=== PATIENT | female | born 1990 | race Caucasian/White ===

== ENCOUNTER 2020-01-08 12:10 | Inpatient (IN) | payer OTHER ==
[2020-01-08] MEDS ORDERED: Lactated Ringers 1000 ML Bag* 1,000 ML IV ONE ×2 (13:17→16:48)
[2020-01-08] MEDS ORDERED: Buffered Lidocaine 1% SYRIN* 1 ML/SYRINGE INTRADERM ONE (13:17)
--- NOTE | 2020-01-08 13:31 | HP ---
General Information - Reason for Visit Contractions and bloody show - General Information Maternal Age: 29 Grav: 1 Para: 0 SAB: 0 IEA: 0 Estimated Due Date: 01/13/20 Determined By: Early Ultrasound Maternal Blood Type and Rh: O Negative - Results this Serology/RPR Result: Non-Reactive Rubella Result: Immune HBsAg Result: Negative HIV Result: Negative GBS Culture Result: Negative Past Medical History Delivery History: See Records Delivery History Comment: No previous pregnancies Pertinent Past Medical History: See Records Past Medical History Comment: Anxiety--on Lexapro Hypercholesteremia Pertinent Past Surgical History: See Records Past Surgical History Comment: [place] teeth 2019 Pertinent Family History: See Records Family History Comment: Stroke Cancer - Antepartal Records Antepartal Records: Reviewed, Complicated by: - Rh negative Review of Systems Constitutional: Uncomfortable CV Complaint: No Respiratory: Shortness of Breath: No Gastrointestinal: No Nausea/Vomiting, Soft Stool Genitourinary: No Dysuria, No Leaking Fluid, Spotting Musculoskeletal: Contractions Neurological: No Headache, No Visual Changes Movement: Normal Exam Allergies/Adverse Reactions: Allergies No Known Allergies Allergy (Verified 01/08/20 12:35) BP 93/62 T 98 HR 110 RR 20 O2 99 - Measurements Height: 5 ft 3 in Weight: 174 lb Weight in lbs: [id number] Body Mass Index (BMI): 30.8 Pre- Weight: 135 lb Weight Gained This : 39 lbs and 0 ozs - Exam Breast: Breast Exam Deferred CVA: No CVA Tenderness Extremities: No Edema Heart: Normal Rhythm/Heart Sounds HEENT: No Significant Findings Lungs: Clear Bilaterally Rectal: Rectal Exam Deferred Reflexes: DTR 2+, - - no clonus Thyroid: - - WNL @ entry to care - Abdominal Exam Abdomen Exam: Non-Tender, Fundal Height Consistent with Dates - Ultrasound/Biophysical Profile Ultrasound Status: Not Done Targeted Exam Findings Estimated Weight: 8lb Cervical Exam: 6cm Effacement: 100% Station: +1 Presenting Part: Vertex Membrane Status: Intact Bleeding/Discharge: None EFM Findings - External Monitor Findings Baseline Heart Rate: 135 External Monitor Findings: Accelerations Present, No Pattern of Variable or Late Decelerations, Variability Moderate Contractions: Regular, Moderate, Strong, 45-90 Seconds Contraction Frequency: q 2-4 min Assessment/Plan - Assessment IUP @ 39+2 weeks gestation in active labor. Intact membranes. No evidence acidemia - Plan Plan: Admit - Anticipate Vaginal Delivery Plan Comment: Admit to L&D. Coping well for now, planning likely epidural. Will initiate IV and draw labs. May get in tub. - Date/Time of Admission Date of Admission: 01/08/20 Time of Admission: 13:14
[2020-01-08] MEDS ORDERED: Lactated Ringers 1000 ML Bag* 1,000 ML IV SCH (14:00)
[2020-01-08 15:03] LABS: ABS Lymphocytes 1.5 10^3/ul (1.0-4.8); ABS Monocytes 0.7 10^3/ul (0-0.8); ABS Neutrophils 11.7 10^3/ul (1.5-7.7); Hematocrit 36 % (35-47); Hemoglobin 12.7 g/dL (12.0-16.0); Lymphocyte % 10.8 %; Mean Corpuscular HGB Conc 35 g/dL (31-36); Mean Corpuscular Hemoglobin 31 pg (27-31); Mean Corpuscular Volume 89 fL (80-97); Mean Platelet Volume 9.6 fL (7.4-10.4); Platelet Count 194 10^3/uL (150-450); Red Blood Count 4.06 10^6 /uL (3.70-4.87); Red Cell Distribution Width 13 % (10-15)
[2020-01-08] MEDS ORDERED: OBEPIDURAL* 250 ML EPIDURAL ONE (15:34)
--- NOTE | 2020-01-08 15:44 | PN ---
Progress Note - Progress Note Date of Service: 01/08/20 Note: S: Feels that contractions are now stronger, wants VE and to consider epidural. O: VE 7cm/100/+1, bulging bag. UCs q 2-3 min FHT 140 via doppler BP 89/44, afebrile A/P: IUP in active labor, membrane intact. No evidence acidemia. Patient desires epidural; reviewed procedure, questions answered and anesthesia paged to unit.
[2020-01-08] MEDS ORDERED: Sodium Citrate/Citric Acid* 15 ML UDC PO PRN (16:48)
[2020-01-08] MEDS ORDERED: Famotidine TAB* 20 MG PO PRN (16:48)
[2020-01-08] MEDS ORDERED: EPHEDrine (Pressors)* 50 MG/ML VIAL IV PUSH PRN (16:48)
[2020-01-08] MEDS ORDERED: Lactated Ringers 1000 ML Bag* 500 ML IV PRN (16:48)
[2020-01-08] MEDS ORDERED: Phenylephrine 40 MCG/ML SYRINGE IV PUSH PRN (16:48)
[2020-01-08] MEDS ORDERED: OBEPIDURAL* 250 ML EPIDURAL SCH (17:00)
[2020-01-08] MEDS ORDERED: Acetaminophen TAB* 325 MG PO ONE (20:24)
--- NOTE | 2020-01-08 20:30 | PN ---
Progress Note - Progress Note Date of Service: 01/08/20 - Time of note: 1944 Note: S: Patient comfortable O: VE 10/100/0 FHT 125-130, single long decel into 90s/100s approx 7 minutes with return to baseline, resolving with position changes. Mod radha, accels after return. UCs Q 2-4 min VSS Membrane intact, bulging bag A: IUP in transition Doubt acidemia P: Continue positioning changes as needed. Will plan to labor down until urge to push. Consider amniotomy. Anticipate SVB
[2020-01-08 20:51] LABS: Urine Benzodiazepine Screen None Detected (None Detect); Urine Opiates Screen None Detected (None Detect)
[2020-01-08] MEDS ORDERED: Calcium Carbonate CHEW TAB* 500 MG (TUMS) PO ONE (21:37)
[2020-01-08] MEDS ORDERED: Oxytocin in LR* 20 UNITS/1,000 ML BAG IVPB ONE (22:06)
[2020-01-08] MEDS: Lactated Ringers 1000 ML Bag* 1,000 ML IV SCH (22:18)
[2020-01-09] MEDS: Lactated Ringers 1000 ML Bag* 1,000 ML IV SCH (01:31)
[2020-01-09] MEDS ORDERED: Glycerin ADULT SUPP PR PRN (02:04)
--- NOTE | 2020-01-09 02:17 | PN ---
Progress Note - Progress Note Date of Service: 01/09/20 Note: Pushing from approx 2200 until after 0100 with multiple breaks due to decelerations with pushing. Position changes and oxygen lead to return to baseline. However concern for patient's and reserves remained and Dr Bradford consulted re vaccuum delivery.
[2020-01-09] MEDS ORDERED: Oxytocin in LR* 20 UNITS/1,000 ML BAG IVPB SCH (03:00)
[2020-01-09] MEDS: Ibuprofen TAB* 600 MG PO PRN ×4 (03:38→19:57)
[2020-01-09] MEDS: Witch Hazel PAD* JAR TOPICAL PRN (03:39)
[2020-01-09] MEDS: Dibucaine 1% 28.35 GM TUBE PR PRN ×3 (03:39→18:32)
--- NOTE | 2020-01-09 05:47 | PROCNOTE ---
[facility] OB: Delivery Note - Delivery A Date of : 01/09/20 Time of : 01:47 [place] Sex: Male Weight at : 8 lb 1 oz Score 1 Minute: 6 Score 5 Minutes: 9 Gestational Age in Weeks and Days at Delivery: 39 Weeks and 3 Days Delivery Method: Low Vacuum Extraction, Vaginal Labor: Spontaneous Did Patient attempt ?: N/A, No Previous Amniotic Fluid: Clear Estimated Blood Loss: 350 Anesthesia/Analgesia: CEI for Labor Delivered By: Oliver Bradford - Nursery Level of Nursery: Regular/Bedside - Perineum Perineal Injury: Perineal Laceration, 2nd Degree Perineal Repair: By Delivering Practioner - Events Delivery Events of Note: Protracted/Long Labor, Pitocin Only After Delivery, Difficult Delivery, Supplemental O2 to Mother, Pushed > 3 Hours - Additional Delivery Notes Additional Delivery Notes: Pt admitted in labor and cared for by the office machine servicer, Ms. Bloom. After she had been pushing for 2-3 hrs, I was consulted to assess for assistance. Pt had been pushing with good effort, however most times if she tried to push in a lithotomy position, the FHR would experience a significant deceleration. When I was able to come in, pt had been resting for about 20-30 min. With one contraction, she brought the baby down to +2 station. Head in OA position. We discussed vacuum assistance including potential risks of failure, shoulder dystocia, severe perineal laceration, and scalp bleeding. Pt desired to proceed. Baez catheter removed. Kiwi vacuum placed on head. With next contraction, pt pushed with excellent effort while traction was applied. Head descended well with each push, and head delivered in a controlled fashion during that contraction. Vacuum removed. Shoulders delivered without difficulty, and body followed. placed on mother's abdomen with vigorous cry. Cord doubly clamped and cut by father. IV pitocin started. Intact placenta delivered spontaneously. Good fundal tone with massage. 1% lidocaine injected and a 2nd degree perineal lac was repaired with 3-0 Vicryl Rapide. A left labial lac was also closed with the same suture.
[2020-01-09] MEDS ORDERED: Lidocaine 1% INJ* 10 MG/ML 30 ML SDV ONE (05:56)
[2020-01-09] MEDS: Docusate CAP* 100 MG PO SCH ×3 (09:17→19:57)
[2020-01-09] MEDS: Escitalopram * 10 MG TAB PO SCH (09:17)
[2020-01-09] MEDS: Acetaminophen TAB* 325 MG PO PRN ×2 (15:05→20:16)
[2020-01-10] MEDS: Ibuprofen TAB* 600 MG PO PRN ×4 (02:27→20:57)
[2020-01-10] MEDS ORDERED: RHO D Immune Globulin (HUMAN)* 300 MCG = 1,500 I.U. INJ IM ONE (06:00)
[2020-01-10 06:20] LABS: ABS Lymphocytes 2.8 10^3/ul (1.0-4.8); ABS Monocytes 0.8 10^3/ul (0-0.8); ABS Neutrophils 7.2 10^3/ul (1.5-7.7); Eosinophil % 0.1 %; Hematocrit 28 % (35-47); Hemoglobin 9.6 g/dL (12.0-16.0); Lymphocyte % 25.9 %; Mean Corpuscular HGB Conc 34 g/dL (31-36); Mean Corpuscular Hemoglobin 31 pg (27-31); Mean Corpuscular Volume 92 fL (80-97); Mean Platelet Volume 9.1 fL (7.4-10.4); Platelet Count 145 10^3/uL (150-450); Red Blood Count 3.07 10^6 /uL (3.70-4.87); Red Cell Distribution Width 14 % (10-15); White Blood Count 10.7 10^3/uL (3.5-10.8)
[2020-01-10] MEDS: Acetaminophen TAB* 325 MG PO PRN ×4 (06:53→20:57)
[2020-01-10] MEDS: Docusate CAP* 100 MG PO SCH ×3 (09:14→20:23)
[2020-01-10] MEDS: Ferrous Gluconate TAB* 324 MG TAB PO SCH ×2 (09:14→20:23)
[2020-01-10] MEDS: Escitalopram * 10 MG TAB PO SCH (09:15)
[2020-01-10] MEDS: Dibucaine 1% 28.35 GM TUBE PR PRN (20:23)
[2020-01-10] MEDS: Witch Hazel PAD* JAR TOPICAL PRN (20:23)
--- NOTE | 2020-01-10 21:14 | PTEDU ---
Patient Name: JOAN RAVI JOAN RAVI selected video: BBOB: Nurturing Your Gorgeous &Growing Baby by to view on 01/10/2020 at 9:13:02 PM from [email or web address]
--- NOTE | 2020-01-10 21:56 | PTEDU ---
Patient Name: JOAN RAVI JOAN RAVI selected video: BBOB: Bonding Through Infant Massage to view on 01/10/2020 at 9:55:2 0 PM [email or web address]
[2020-01-11] MEDS: Acetaminophen TAB* 325 MG PO PRN (02:19)
[2020-01-11] MEDS: Ibuprofen TAB* 600 MG PO PRN ×2 (02:59→09:57)
[2020-01-11 08:27] VITALS: BP 110/69
[2020-01-11] MEDS: Ferrous Gluconate TAB* 324 MG TAB PO SCH (09:56)
[2020-01-11] MEDS: Escitalopram * 10 MG TAB PO SCH (09:56)
[2020-01-11] MEDS: Docusate CAP* 100 MG PO SCH (09:57)
== END 2020-01-11 11:40 | disposition home or self-care (01) | DRG 806 ==
LOC: MCHOBOUT 12:10 → MCHOB 13:14
PROVIDERS: ADMIT Midwife; ATTEND Obstetrics & Gynecology
PROC: 10D07Z6 Extraction of Products of Conception, Vacuum, Via Natural or Artificial Opening (ICD-10-PCS; principal; 2020-01-09)
PROC: 0KQM0ZZ Repair Perineum Muscle, Open Approach (ICD-10-PCS; 2020-01-09)
PROC: 4A1HXCZ Monitoring of Products of Conception, Cardiac Rate, External Approach (ICD-10-PCS; 2020-01-09)
PROC: 0UQMXZZ Repair Vulva, External Approach (ICD-10-PCS; 2020-01-09)
DX: O99.344 Other mental disorders complicating childbirth (principal); O63.9 Long labor, unspecified; Z37.0 Single live birth; F41.9 Anxiety disorder, unspecified; O70.1 Second degree perineal laceration during delivery; O76 Abnormality in fetal heart rate and rhythm complicating labor and delivery; R32 Unspecified urinary incontinence; O90.81 Anemia of the puerperium; Z3A.39 39 weeks gestation of pregnancy; Z67.41 Type O blood, Rh negative
CPT/HCPCS: 36415; 80307; 85025; 86850; 86900; 86901; A9270-GY; G0480